=== PATIENT | male | born 1980 | race Caucasian/White ===

== ENCOUNTER 2019-12-28 05:16 | Emergency (ER) | payer SELFPAY ==
--- NOTE | 2019-12-28 05:23 | PDOC ---
Attending Attestation - Resident Resident Name: Yvette Rollins - ED Attending Attestation I have performed the following: I have examined & evaluated the patient, The case was reviewed & discussed with the resident, I agree w/resident's findings & plan - HPI HPI: 12/28/19 05:27 Pt was in his car slumped over the steering wheel, intox likely. EMS state that he was taking up two lanes on [id number]. They couldn't see chest rise so they broke the back window and got in the car and pt woke up and asked what happened. Pt states that he drank 4 beers and never used drugs. 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 Pt has blood shot eyes. He apologized for being here. Pt states that his car was on minimal gas and that is why he stopped. - Physicial Exam PE: 12/28/19 05:31 Normal exam Pt smells of alcohol. Heart and lungs normal abdomen soft NT ND no flank pain No edema of extremities HEENT normal - Medical Decision Making 12/28/19 05:27 Pt will have basic labs and alcohol and UTOX and EKG 12/28/19 06:01 Pt will be signed out to the day team. Discharge - Discharge Information Problems reviewed: Yes Clinical Impression/Diagnosis: Intoxication Condition: Guarded - Follow up/Referral - Patient Discharge Instructions - Post Discharge Activity
[2019-12-28 05:39] VITALS: BMI 23.9
--- NOTE | 2019-12-28 05:39 | PDOC ---
History of Present Illness - General Stated Complaint: INTOX Time Seen by Provider: 12/28/19 05:20 - History of Present Illness Initial Comments: 12/28/19 05:30 HPI: 39 y/o with no pmh +covid in August [place] found unconscious in his car parked in the middle of the road on [address]. Per EMS, car was seen while they were driving, they attempted to wake up patient by tapping on glass, but no response. They broke the window and patient finally aroused, and asked what was happening. EMS brought to the ER for eval and car was impounded. Patient appeared intoxicated. On arrival, patient stating he wants to go home and has no complaints. Denies fever, chills, chest pain, SOB, abd pain, n/v. States he only drank 4beers and this never happened before. PMHx: as noted above ROS: as noted SHx: Denies tobacco use; +alcohol use; no rec drugs Allergies: NKDA ROS: GENERAL/CONSTITUTIONAL: No fever or chills. No weakness. HEAD, EYES, EARS, NOSE AND THROAT: No change in vision. No ear pain or discharge. No sore throat. CARDIOVASCULAR: No chest pain or shortness of breath RESPIRATORY: No cough, wheezing, or hemoptysis. GASTROINTESTINAL: No nausea, vomiting, diarrhea or constipation. GENITOURINARY: No dysuria, frequency, or change in urination. MUSCULOSKELETAL: No joint or muscle swelling or pain. No neck or back pain. SKIN: No rash NEUROLOGIC: No headache, vertigo, loss of consciousness, or change in strength/sensation. ENDOCRINE: No increased thirst. No abnormal weight change HEMATOLOGIC/LYMPHATIC: No anemia, easy bleeding, or history of blood clots. ALLERGIC/IMMUNOLOGIC: No hives or skin allergy. PE: GENERAL: Awake, alert, and fully oriented, no acute distress HEAD: No signs of trauma, normocephalic, atraumatic EYES: EOMI, sclera anicteric, conjunctiva clear ENT: Auricles normal inspection, hearing grossly normal, nares patent, oropharynx clear without exudates. Moist mucosa NECK: Normal ROM, no lymphadenopathy LUNGS: No increased work of breathing, symmetrical chest rise, clear to auscultation bilaterally, no wheezes, crackles or rhonchi HEART: Regular rate, regular rhythm, normal S1 and S2, no murmur, peripheral pulses 2+ and equal bilaterally. ABDOMEN: Soft, nondistended, nontender. No guarding, no rebound. No masses. No CVAT MUSCULOSKELETAL: FROM NEUROLOGICAL: Cranial nerves II through XII grossly intact. Normal speech, no focal sensorimotor deficits SKIN: Warm, Dry, normal turgor, no rashes or lesions noted Past History - Medical History Allergies/Adverse Reactions: Allergies Allergy/AdvReac Type Severity Reaction Status Date / Time No Known Allergies Allergy Verified 12/28/19 05:39 ED Treatment Course - LABORATORY CBC & Chemistry Diagram: 12/28/19 05:40 12/28/19 05:40 Medical Decision Making - Medical Decision Making 12/28/19 05:50 39 y/o with no pmh +covid in August [place] found unconscious in his car parked in the middle of the road on [facility] and appearing intoxicated. VSS, AF. PE unremarkable. -ekg, cbc, cmp, alcohol level, utox -sign out to morning team to DC once clinically sober and labs normal Discharge - Discharge Information Problems reviewed: Yes Clinical Impression/Diagnosis: Intoxication - Follow up/Referral - Patient Discharge Instructions - Post Discharge Activity
[2019-12-28 06:15] LABS: BASO % 0.5 % (0-2.0); EOS % 0.4 % (0-4.5); HEMATOCRIT 43.1 % (35.4-49); HEMOGLOBIN 14.2 GM/dL (11.7-16.9); LYMPH % 38.2 % (8-40); MCH 27.9 pg (25.7-33.7); MEAN CELL VOLUME 84.4 fl (80-96); MEAN PLT VOLUME 9.1 fl (7.5-11.1); MONO % 8.2 % (3.8-10.2); NEUT % 52.7 % (42.8-82.8); PLATELET COUNT 202 K/MM3 (134-434); RBC 5.11 M/mm3 (4.00-5.60); RDW 13.5 % (11.9-15.9); WHITE BLOOD COUNT 7.1 K/mm3 (4.0-10.0)
[2019-12-28 06:31] LABS: COCAINE, UR NEGATIVE ng/ml (CUTOFF=300); OPIATES, URI NEGATIVE ng/ml (CUTOFF=300); PHENCYCLIDINE,URINE NEGATIVE ng/ml (CUTOFF=25); URINE AMPHETAMINES NEGATIVE ng/ml (CUTOFF=500); URINE BARBITURATES NEGATIVE ng/ml (CUTOFF=200)
[2019-12-28 06:39] LABS: METHADONE, UR NEGATIVE ng/ml (CUTOFF=300); URINE BENZODIAZEPINES NEGATIVE ng/ml (CUTOFF=200)
[2019-12-28] MEDS ORDERED: SODIUM CHLORIDE 0.9% 500 ML INFUS.BAG IV ONE (06:39)
[2019-12-28 06:41] LABS: ALBUMIN 4.5 g/dl (3.4-5.0); BILIRUBIN,TOTAL 0.2 mg/dL (0.2-1); BLOOD UREA NITROGEN 9.1 mg/dL (7-18); CALCIUM 8.7 mg/dL (8.5-10.1); CREATININE 0.8 mg/dL (0.55-1.3); POTASSIUM 4.2 mmol/L (3.5-5.1)
[2019-12-28 08:47] VITALS: BP 96/70; PULSE 75; TEMP 98.4
--- NOTE | 2019-12-28 08:58 | PDOC ---
*Physical Exam - Vital Signs Last Vital Signs Temp Pulse Resp BP Pulse Ox 98.4 F 75 14 96/70 100 12/28/19 08:46 12/28/19 08:46 12/28/19 08:46 12/28/19 08:46 12/28/19 08:46 - Physical Exam General Appearance: Yes: Nourished, Appropriately Dressed Respiratory/Chest: positive: Lungs Clear, Normal Breath Sounds Cardiovascular: positive: Regular Rhythm, Regular Rate Neurologic: positive: Fully Oriented, Alert ED Treatment Course - LABORATORY CBC & Chemistry Diagram: 12/28/19 05:40 12/28/19 05:40 - ADDITIONAL ORDERS Additional order review: Laboratory Results 12/28/19 12/28/19 05:40 05:40 Sodium 143 Potassium 4.2 Chloride 110 H Carbon Dioxide 25 Anion Gap 9 BUN 9.1 Creatinine 0.8 Est GFR (CKD-EPI)AfAm 130.42 Est GFR (CKD-EPI)NonAf 112.53 Random Glucose 98 Calcium 8.7 Total Bilirubin 0.2 AST 19 ALT 44 Alkaline Phosphatase 67 Total Protein 8.0 Albumin 4.5 Opiates Screen Negative Methadone Screen Negative Barbiturate Screen Negative Phencyclidine Screen Negative Ur Amphetamines Screen Negative MDMA (Ecstasy) Screen Negative Benzodiazepines Screen Negative Cocaine Screen Negative U Marijuana (THC) Screen Negative Alcohol, Quantitative 228.0 H 12/28/19 05:40 RBC 5.11 MCV 84.4 MCHC 33.0 RDW 13.5 MPV 9.1 Neutrophils % 52.7 Lymphocytes % 38.2 Monocytes % 8.2 Eosinophils % 0.4 Basophils % 0.5 - Medications Given in the ED: ED Medications Discontinued Medications Generic Name Dose Route Start Last Admin Trade Name Handyq PRN Reason Stop Dose Admin Sodium Chloride 250 ml 12/28/19 06:39 12/28/19 06:39 Normal Saline - IV 12/28/19 06:40 250 ml ONCE ONE Administration Medical Decision Making - Medical Decision Making Received sign out from Dr. Rollins. Pt was etoh intoxicated with 228 at 5:40. He was awoken at 8:45 and was assessed to be alert and oriented with stable vitals. His IV was removed and he eloped before he could be further assessed for gait. 12/28/19 08:56 Discharge - Discharge Information Problems reviewed: Yes Clinical Impression/Diagnosis: Intoxication Condition: Stable Disposition: ELOPED - Admission No - Follow up/Referral - Patient Discharge Instructions Additional Instructions: Return to ED if condition worsens. See your primary care for information on detox. - Post Discharge Activity
--- NOTE | 2019-12-28 11:35 | EKG ---
Test Reason : Blood Pressure : / mmHG Vent. Rate : 079 BPM Atrial Rate : 079 BPM P-R Int : 164 ms QRS Dur : 080 ms QT Int : 384 ms P-R-T Axes : 038 054 007 degrees QTc Int : 440 ms NORMAL SINUS RHYTHM NORMAL ECG NO PREVIOUS ECGS AVAILABLE Confirmed by KALINA GRAY MD ([id number]) on 12/28/2019 11:34:31 AM Referred By: Confirmed By:KALINA GRAY MD
== END 2019-12-28 09:10 | disposition left against medical advice (07) ==
LOC: JER 05:16
DX: F10.929 Alcohol use, unspecified with intoxication, unspecified (principal)
CPT/HCPCS: 36415; 80053; 80307; 85025; 93005; 93010; 99284-25